=== PATIENT | male | born 1950 | race Caucasian/White ===

== ENCOUNTER → 2018-06-16 | Outpatient (CLI) | payer OTHER ==
--- NOTE | 2018-06-16 11:08 | RAD ---
EXAM DESCRIPTION: Pelvis CLINICAL HISTORY: 68 years Male, PAIN IN RIGHT HIP COMPARISON: None. FINDINGS: Single AP view of the pelvis was obtained. No acute fracture or malalignment is noted. 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 No significant hip joint space narrowing. Mild degenerative changes in the pubic symphysis. The sacroiliac joints are unremarkable. IMPRESSION: Mild degenerative changes including degenerative changes in both hips as detailed above. Electronically signed by: Shahab Mascorro MD 06/16/2018 11:06 AM [facility]
--- NOTE | 2018-06-16 11:10 | RAD ---
EXAM DESCRIPTION: Knee,Right Complete CLINICAL HISTORY: 68 years Male, PAIN IN RIGHT KNEE COMPARISON: None. FINDINGS: Four views of the right knee were obtained. No acute fracture or malalignment. No joint effusion. The joint spaces are fairly well-maintained. Cortical irregularity involving the proximal third of the right fibular diaphysis suggests an old healed fracture at this location. No radiopaque foreign body or soft tissue gas. IMPRESSION: Evidence of remote trauma, otherwise unremarkable exam. Electronically signed by: Shahab Mascorro MD 06/16/2018 11:09 AM [facility]
== END ==
LOC: RAD 08:41
PROVIDERS: ATTEND Orthopaedic Surgery
DX: M25.561 Pain in right knee (principal); M25.551 Pain in right hip

== ENCOUNTER 2019-04-03 05:14 | Day surgery (SDC) | payer OTHER ==
[2019-04-03] MEDS ORDERED: MIDAZOLAM INJ 2 MG/2 ML VIAL ONE (06:18)
[2019-04-03] MEDS ORDERED: MOXIFLOXACIN HCL (OPHTH) 1 DROP DROPS ONE (09:22)
[2019-04-03] MEDS ORDERED: PROPARACAINE 0.5% OPHTH SOL 15 ML BTTL ONE (09:23)
[2019-04-03] MEDS ORDERED: TROP 1%/CYCLOPEN 1%/PHENYL 2% DROPS ONE (09:23)
[2019-04-03] MEDS ORDERED: PROPARACAINE 0.5% OPHTH SOL 15 ML BTTL RIGHT_EYE ONE (11:26)
[2019-04-03] MEDS ORDERED: MOXIFLOXACIN HCL (OPHTH) 1 DROP DROPS RIGHT_EYE ONE ×2 (11:38→11:42)
[2019-04-03] MEDS ORDERED: LIDOCAINE 1% MPF 2 ML VIAL INJ ONE (11:38)
[2019-04-03] MEDS ORDERED: DEXAMETHASONE 0.1% OPHTH SOL 1 DROP RIGHT_EYE ONE ×2 (11:39→11:43)
[2019-04-03] MEDS ORDERED: BRIMONIDINE 0.2% OPHTH DROPS RIGHT_EYE ONE ×2 (11:39→11:43)
[2019-04-03] MEDS ORDERED: TOBRAMYCIN SULF 0.3 % OPHT SOL 1 DROP RIGHT_EYE ONE ×2 (11:39→11:43)
== END 2019-04-03 12:20 | disposition home or self-care (01) ==
LOC: AMB 05:14
PROVIDERS: ATTEND Ophthalmology
DX: H25.11 Age-related nuclear cataract, right eye (principal)
CPT/HCPCS: 00142; 66984; J2250

== ENCOUNTER 2019-04-17 05:28 | Day surgery (SDC) | payer OTHER ==
[2019-04-17] MEDS ORDERED: MOXIFLOXACIN HCL (OPHTH) 1 DROP DROPS ONE (05:50)
[2019-04-17] MEDS ORDERED: TROP 1%/CYCLOPEN 1%/PHENYL 2% DROPS ONE (05:50)
[2019-04-17] MEDS ORDERED: PROPARACAINE 0.5% OPHTH SOL 15 ML BTTL ONE (05:50)
[2019-04-17] MEDS ORDERED: MIDAZOLAM INJ 2 MG/2 ML VIAL ONE (08:59)
[2019-04-17] MEDS ORDERED: PROPARACAINE 0.5% OPHTH SOL 15 ML BTTL LEFT_EYE ONE (09:00)
[2019-04-17] MEDS ORDERED: MOXIFLOXACIN HCL (OPHTH) 1 DROP DROPS LEFT_EYE ONE ×4 (09:10→09:24)
[2019-04-17] MEDS ORDERED: DEXAMETHASONE 0.1% OPHTH SOL 1 DROP LEFT_EYE ONE ×3 (09:10→09:24)
[2019-04-17] MEDS ORDERED: LIDOCAINE 1% MPF 2 ML VIAL INJ ONE (09:10)
[2019-04-17] MEDS ORDERED: BRIMONIDINE 0.2% OPHTH DROPS LEFT_EYE ONE ×3 (09:11→09:24)
[2019-04-17] MEDS ORDERED: TOBRAMYCIN SULF 0.3 % OPHT SOL 1 DROP LEFT_EYE ONE ×3 (09:11→09:24)
== END 2019-04-17 10:04 | disposition home or self-care (01) ==
LOC: AMB 05:28
PROVIDERS: ATTEND Ophthalmology
DX: H25.12 Age-related nuclear cataract, left eye (principal)
CPT/HCPCS: 00142; 66984; J2250